=== PATIENT | female | born 1965 | race Hispanic/Latino ===

== ENCOUNTER 2021-02-07 16:49 | Emergency (ER) | payer OTHER ==
[~2021-02-07] VITALS: Ht 152.4 cm; Wt 63.5 kg
[2021-02-07] MEDS ORDERED: ACETAMINOPHEN 325 MG TAB PO PRN (17:00)
[2021-02-07] MEDS ORDERED: KETOROLAC TROMETHAMINE 60 MG/2 ML VIAL IM ONE (17:00)
[2021-02-07] MEDS ORDERED: IBUPROFEN400 MG PO (18:47)
[2021-02-07] MEDS ORDERED: CYCLOBENZAPRINE10 MG PO (18:47)
== END 2021-02-07 19:01 | disposition home or self-care (01) ==
LOC: FSED 17:01
DX: M25.511 Pain in right shoulder (principal); X50.0XXA Overexertion from strenuous movement or load, initial encounter; Y93.E6 Activity, residential relocation; I10 Essential (primary) hypertension
CPT/HCPCS: 73030; 99283; J1885